=== PATIENT | female | born 1955 | race Caucasian/White ===

== ENCOUNTER 2016-07-05 12:33 | Outpatient (CLI) ==
[2014-09-16 18:31] VITALS: BMI 24.6
--- NOTE | 2016-07-05 13:54 | DI ---
EXAM: Five views of the cervical spine. History: Neck pain. Findings: Reversal of the normal cervical lordosis. No acute fracture or subluxation. No preverte bral soft tissue swelling. Predental space is not widened. Moderate to severe disc space narrowing at C5-6 and mild to moderate disc space narrowing at C4-5 and C6-7. Small anterior osteophytes. T he oblique images demonstrate multilevel bilateral bony neural foraminal narrowing secondary to unco vertebral and facet hypertrophy and most significant at C5-6 bilaterally and C4-5 on the right. Impression: No acute osseous abnormality of the cervical spine. Degenerative changes.
--- NOTE | 2016-07-05 13:56 | DI ---
EXAM: Right elbow three views HISTORY: Right elbow pain COMPARISON: None FINDINGS: The bones are normal. The alignment is normal. No joint effusion. No focal soft tissue ab normality. IMPRESSION: Normal examination.
== END 2016-07-05 12:34 | disposition home or self-care (01) ==
LOC: RAD 12:33
PROVIDERS: ATTEND Internal Medicine
DX: M54.12 Radiculopathy, cervical region (principal); M25.521 Pain in right elbow

== ENCOUNTER 2017-10-20 08:51 | Outpatient (CLI) ==
[2014-09-16 18:31] VITALS: BMI 24.6
--- NOTE | 2017-10-20 11:00 | MAMMO ---
EXAM: Digital screening mammogram with tomosynthesis HISTORY: Screening COMPARISON: 06/16/2015 FINDINGS: Digital MLO and CC views of the right and left breast were performed. Tomosynthesis was performed. Computer aided detection utilized. There are scattered fibroglandular densities. Stable benign bilateral calcifications. There is no evidence for mass, asymmetry, distortion, or suspicious calcifications in either breast. IMPRESSION: 1. No evidence of malignancy in the right or left breast. 2. Annual screening mammogram is recommended in one year. BIRADS category 2, benign
== END 2017-10-20 08:52 | disposition home or self-care (01) ==
LOC: RAD 08:51
PROVIDERS: ATTEND Internal Medicine
DX: Z12.31 Encounter for screening mammogram for malignant neoplasm of breast (principal)
CPT/HCPCS: 77067